=== PATIENT | male | born 1955 | race Caucasian/White ===

== ENCOUNTER 2016-08-19 09:08 | Day surgery (SDC) | payer OTHER ==
[~2016-08-19] VITALS: Ht 185.4 cm; Wt 92.5 kg
[~2016-08-19 09:08] MED LIST: ASPI-973 PO; CA C1TAB28 PO; LISI10TA2 PO; MULT-36 PO; OXYC10TA8 PO; Sodium Chloride LOK Flush 10 mL Syringe IV PRN; TRAM50TA2 PO; fentaNYL-PF 50 mCg/mL 2 mL Inj IVPUSH PRN
[2016-08-19 09:21] VITALS: BP 134/88; PULSE 88; RESP 16; O2SAT 97
[2016-08-19] MEDS: 0.9% Sodium Chloride 1,000 ML IV PRN ×2 (09:21→09:41)
[2016-08-19 10:43] VITALS: BP 110/83; PULSE 79; RESP 14; O2SAT 96
[2016-08-19 10:53] VITALS: BP 113/76; PULSE 78; RESP 14; O2SAT 96
[2016-08-19 11:02] VITALS: BP 121/80; PULSE 79; RESP 14; O2SAT 96
--- NOTE | 2016-08-19 21:24 | ENDO ---
[address] [address] ENDOSCOPY PROCEDURE PATIENT: MARY GRACE WEATHERS : 1955 MR#: [id number] ADMIT: 08/19/2016 JOB ID: [id number] PRIMARY PROVIDER: Federico Xie MD PROCEDURE: Colonoscopy. INDICATIONS: A 61-year-old male who reports for colon cancer screening. EQUIPMENT: PCF-H190 L SEDATION: Versed 4 mg, 75 mcg fentanyl. COMPLICATIONS: None identified. PREPARATION: Bowel prep fair. PROCEDURE IN DETAIL: After the risks and benefits were explained, written and verbal informed consent was obtained, the patient was brought into the endoscopy suite and placed into the left lateral decubitus position. Sedation was achieved with the above-stated medications with the addition of oxygen via nasal cannula. A digital rectal examination was accomplished. No significant pathology was appreciated. The scope was introduced into the rectum and advanced under direct visualization to the level of the cecum, as identified by the appendiceal orifice and ileocecal valve. The scope was slowly withdrawn to carefully examine the mucosa for any defects or lesions. Retroflex views were accomplished in the rectum. The colon was decompressed. The scope removed the patient who tolerated the procedure well. FINDINGS: Moderate diverticulosis was seen throughout the left colon. No significant polyps, mass lesions, or inflammatory features identified throughout. ENDOSCOPIC DIAGNOSES: 1. Diverticulosis. 2. Otherwise visually unremarkable colonoscopy to cecum. RECOMMENDATIONS: Repeat colonoscopy in 10 years' time, sooner should symptoms warrant.
== END 2016-08-19 23:59 | disposition home or self-care (01) ==
LOC: END 09:08
PROVIDERS: ATTEND Internal Medicine Gastroenterology
DX: Z12.11 Encounter for screening for malignant neoplasm of colon (principal); K57.30 Diverticulosis of large intestine without perforation or abscess without bleeding; Z83.71 Family history of colonic polyps; I10 Essential (primary) hypertension; N40.0 Benign prostatic hyperplasia without lower urinary tract symptoms; E83.119 Hemochromatosis, unspecified; K21.9 Gastro-esophageal reflux disease without esophagitis; G47.33 Obstructive sleep apnea (adult) (pediatric); G25.81 Restless legs syndrome; F41.9 Anxiety disorder, unspecified; Z79.82 Long term (current) use of aspirin